=== PATIENT | female | born 1970 | race Caucasian/White ===

== ENCOUNTER 2023-03-20 15:10 | Emergency (ER) | payer OTHER, SELFPAY ==
[2023-03-20 15:40] VITALS: BP 182/96
[2023-03-20 16:05] LABS: Urine Albumin Negative (Neg - Trace); Urine Bilirubin Negative (Negative); Urine Character Clear (Clear); Urine Color Yellow; Urine Glucose Trace (Negative); Urine Ketone Negative (Negative); Urine Leukocyte Trace (Negative); Urine Nitrite Negative (Negative); Urine Occult Blood Trace (Negative); Urine Urobilinogen Negative (Neg - 1+)
[2023-03-20 16:11] LABS: % Basophils 1.2 % (0-2); % Eosinophils 1.1 % (0-6); % Immature Granulocytes 0.2 % (0-0.5); % Lymphocytes 25.4 % (20.5-51.1); % Monocytes 6.2 % (1.7-9.3); % Neutrophils 65.9 % (42.2-75.2); Absolute Basophils 0.1 10^3/uL (0-0.2); Absolute Eosinophils 0.1 10^3/uL (0-0.7); Absolute Lymphocytes 2.2 10^3/uL (1.2-3.4); Absolute Monocytes 0.5 10^3/uL (0.1-0.6); Absolute Neutrophils 5.6 10^3/uL (1.4-6.5); Hematocrit 33.7 % (37.0-47.0); Hemoglobin 9.4 g/dL (12.0-16.0); Mean Corp Hgb Conc. 27.9 g/dL (33.0-37.0); Mean Corpuscular Hgb 17.8 pg (27.0-31.0); Mean Corpuscular Volume 63.9 fL (81.0-99.0); Mean Platelet Volume 9.3 fL (7.4-10.4); Nucleated Red Blood Cells % 0 %; Platelet Count 290 10^3/uL (130-400); Red Blood Cell Count 5.27 10^6/uL (4.20-5.40); White Blood Cell Count 8.5 10^3/uL (4.8-10.8)
[2023-03-20 16:12] LABS: HCG, Serum Qualitative Screen Negative
[2023-03-20 16:16] LABS: ALT (SGPT) 18 U/L (0-35); AST (SGOT) 22 U/L (14-36); Albumin 4.4 g/dl (3.5-5.0); Alkaline Phosphatase 84 U/L (38-126); Blood Urea Nitrogen 15 mg/dl (7-17); Calcium 9.2 mg/dl (8.4-10.2); Carbon Dioxide 28 mmol/L (22-30); Chloride 106 mmol/L (98-107); Glucose 112 mg/dl (70-99); Lipase 154 U/L (23-300); Potassium 3.8 mmol/L (3.5-5.1); Sodium 138 mmol/L (135-145); Total Bilirubin 0.5 mg/dl (0.2-1.3); Total Protein 7.5 g/dl (6.3-8.2); eGFR > 60.00
[2023-03-20 16:23] LABS: Urine Bacteria Few (Negative)
[2023-03-20 16:45] LABS: Anisocytosis 1+; Hypochromasia Slight; Normal RBC Morphology No; Ovalocytes 1+
--- NOTE | 2023-03-20 23:04 | ED.GENMED ---
History of Present Illness
General
Chief Complaint: Abdominal Pain
Source: patient
Exam Limitations: none
Time Seen by Provider: 03/20/23 17:20
Nursing documentation reviewed up to this point in time: agreed with
Travel History
Have you had any contact with someone who has COVID-19?: No
Do you have any symptoms of coronavirus? Fever > 100 degrees, chills, cough, shortness of breath, sore throat, loss of taste or smell, muscle aches, or headache?: No
History of Present Illness
History of Present Illness:
Patient to ED with complaint of Left sided abdominal discomfort. States she does not feel pain, just some discomfort. Started 2 days ago. Denies N/V/D. Eating and drinking normally. Brought self to ED for eval. No prior history of same.
Past History
Past History
ED Past Medical History: None
ED Past Surgical History: None
Social History
Tobacco: Non-smoker
Alcohol: None
Drug: None
Review of Systems
Review of Systems
Allergies reviewed?: Yes
All Other Systems: ROS reviewed and negative except as documented in HPI and ROS
Constitutional: Reports no symptoms
EENT: Reports no symptoms
Respiratory: Reports no symptoms
Cardiac: Reports no symptoms
ABD/GI: Reports abdominal pain (Left sided abdominal discomfort)
: Reports no symptoms
Musculoskeletal: Reports no symptoms
Skin: Reports no symptoms
Neurological: Reports no symptoms
Psychiatric: Reports no symptoms
Phy Exam
General Physical Exam
General Presentation: well appearing and no apparent distress
General age: appears stated age
General Skin: warm and dry
General Habitus: normal
General Mental: alert
Pulmonary Exam
Pulmonary Exam: lungs clear and no respiratory distress
Gastrointestinal Exam
Gastrointestinal Exam: normal bowel sounds, soft, no organomegaly, no pulsatile mass, non distended, no cva tenderness and other
Palpation: left upper quadrant: Minimal tenderness, left lower quadrant: No tenderness, right upper quadrant: No tenderness and right lower quadrant: No tenderness
Musculoskeletal Exam
Musculoskeletal Exam: full ROM and neuro vasc intact
Skin Exam
Skin Exam: normal color, warm/dry and no rash
Psychiatric Exam
Psychiatric Exam: normal mood/affect
Course
Orders/Labs/Results
Orders:
Orders
03/20/23 15:44
Test Result ONCE
03/20/23 15:55
Complete Blood Count/With Diff Urgent
Comprehensive Metabolic Panel Urgent
HCG, Serum Qualitative Screen Urgent
Lipase Urgent
Urinalysis Reflex To Culture Urgent
Date Specimen was Collected: 03/20/23
Time Specimen was Collected: 15:44
Urine Microscopic Reflex Cult Urgent
03/20/23 17:31
US Abdomen Complete/Upper Urgent
Comment:
Reason For Exam: discomfort
Abnormal Lab Results
03/20/23
15:55
Hgb 9.4 L g/dL
(12.0-16.0)
Hct 33.7 L %
(37.0-47.0)
MCV 63.9 L fL
(81.0-99.0)
MCH 17.8 L pg
(27.0-31.0)
MCHC 27.9 L g/dL
(33.0-37.0)
RDW 19.0 H %
(11.5-14.5)
Glucose 112 H mg/dl
(70-99)
Ur Occult Blood Reflex Trace A
(Negative)
Leukocyte Esterase Rfl Trace A
(Negative)
Urine RBC 3-6 A /HPF
(0-2)
Urine Bacteria (Reflex) Few A
(Negative)
Urine Glucose Trace A
(Negative)
03/20/23 15:55
03/20/23 15:55
Vital Signs
Initial and Last Documented VS:
Initial Vital Signs
Temp Pulse Resp BP Pulse Ox
98.7 F 79 16 182/96 100
03/20/23 15:40 03/20/23 15:40 03/20/23 15:40 03/20/23 15:40 03/20/23 15:40
Last Documented Vital Signs
Temp Pulse Resp BP Pulse Ox
98.7 F 79 16 182/96 100
03/20/23 15:40 03/20/23 15:40 03/20/23 15:40 03/20/23 15:40 03/20/23 15:40
*Radiology
Radiology exam reviewed: radiology read reviewed
*Pulse Oximetry
Patient hypoxic: no
*Critical Care Note
Total Time (30-74mins, 75-104mins- exclusive of procedures): Not Applicable
Update Note
Update Note:
Labs US reviewed with patient. 2 large gallstones noted on US, no US evidence of cholecystitis. LFT's normal, tibi normal. Discussed s/s with patient. She has no RUQ pain, no back pain. Afebrile. Will discharge home, follow closely with PCP.
Given isntructions on s/s to return to ED and she is agreeable to plan.
ED Attending Note
-
Portions of this chart may have been created with voice recognition software.� Occasional wrong word or��sound alike� substitutions may have occurred due to the inherent limitations of voice recognition software.
Discharge Plan
Departure
Patient Disposition: Home (Routine Discharge)
Date of Disposition: 03/20/23
Time of Disposition: 18:50
Patient with high blood pressure during this ER visit?: No
Condition: Good
Covid-19: Not Applicable
Discharge Problem:
Abdominal pain
Instructions: Gallstones (DC), Abdominal Pain
Referrals:
NONE,* [Family Provider] -
Activity Restrictions/Additional Instructions:
Follow up with your family doctor. Return to the emergency department immediately for fever/chills, increasing pain, vomiting or for any further concerns.
Interventions
Interventions:
*Risk Screen - Suicide Last Done: 03/20/23 16:45
*Neglect/Abuse Screening Last Done: 03/20/23 16:45
ED- Fall Risk Assessment Last Done: 03/20/23 19:14
*ED COVID-19 Vaccine History Last Done: 03/20/23 15:40
*Nursing Disposition Last Done: 03/20/23 19:14
XB-Sgaawt-Wwdgeegyoc Assessment Last Done: 03/20/23 18:39
Discharge Date and Time
Discharge Date/Time: 03/20/23 19:14
== END 2023-03-20 19:14 | disposition home or self-care (01) ==
LOC: EMR 15:10
PROVIDERS: Emergency Medicine; EMERGENCY PHYSICIAN Emergency Medicine
DX: R10.9 Unspecified abdominal pain (principal)
CPT/HCPCS: 99284; 76700; 80053; 81003; 81015; 83690; 84703; 85025